=== PATIENT | male | born 2000 | race Caucasian/White ===

== ENCOUNTER 2023-06-03 19:37 | Emergency (ER) | payer OTHER ==
--- NOTE | 2023-06-03 19:47 | ED Physician Documentation ---
PD HPI UPPER EXT INJURY - Stated complaint Stated Complaint: LT HAND INJ - Chief complaint Chief Complaint: Trauma Ext - History obtained from History obtained from: Patient - Additonal information Additional information: Right-handed gentleman accidentally hit his left thumb with a hammer at home just prior to arrival. He has moderate pain in the distal left thumb and fingernail area, no other injuries. Declines pain medication on initial evaluation. PD PAST MEDICAL HISTORY - Past Medical History Past Medical History: No - Past Surgical History Past Surgical History: No - Present Medications Home Medications: Ambulatory Orders Medication Instructions Recorded Confirmed No Known Home Medications 06/03/23 06/03/23 - Allergies Allergies/Adverse Reactions: Allergies Allergy/AdvReac Type Severity Reaction Status Date / Time Penicillins Allergy Rash Verified 06/03/23 19:44 - Social History Does the pt smoke?: No Smoking Status: Never smoker - Immunizations Immunizations are current?: Yes - POLST Patient has POLST: No PD ED PE NORMAL - Vitals Vital signs reviewed: Yes - General General: Alert and oriented X 3, No acute distress - Extremities Extremities: Other (Tender to the tip of the left thumb with a less than 10% subungual hematoma and normal neurovascular status at the tip. No proximal thumb or metacarpal area tenderness.) - Neuro Neuro: Alert and oriented X 3, Normal speech Results - Vitals Vitals: Vital Signs - 24 hr 06/03/23 06/03/23 19:41 21:04 Temperature 36.7 C Heart Rate 71 72 Respiratory 16 16 Rate Blood Pressure 137/62 H 135/64 H O2 Saturation 100 99 Oxygen O2 Source Room air - Rads (name of study) 3v L thumb XR- negative Relevant Findings:: Final report received, EMP independent interpretation of test Departure - Departure Disposition: 01 Home, Self Care Clinical Impression: Crushing injury of thumb, left Qualifiers: Encounter type: initial encounter Qualified Code(s): S67.02XA - Crushing injury of left thumb, initial encounter Condition: Good Record reviewed to determine appropriate education?: Yes Instructions: ED Crush Injury Finger No Fx Comments: Tylenol and/or ibuprofen as needed for pain, you can also ice it 5 minutes on 20 minutes off. Should be better in a week or so. Return if worse. 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 Forms: Activity restrictions Discharge Date/Time: 06/03/23 21:05
[2023-06-03 21:07] VITALS: BP 135/64; O2SAT 99
--- NOTE | 2023-06-03 21:55 | XRAY Report ---
PROCEDURE: Finger(s) LT INDICATIONS: thumb inj TECHNIQUE: PA hand, 2 views of the thumb acquired. COMPARISON: None. FINDINGS: Bones: No acute fractures or dislocations. No suspicious bony lesions. Soft tissues: No suspicious soft tissue calcifications. IMPRESSION: No acute osseous abnormality. If there is clinical concern or persistent symptoms, additional imaging such as repeat radiographs or advanced imaging (e.g. CT, MRI) may be helpful for further evaluation. Reviewed by: Liang Ceja MD on 06/03/2023 9:54 PM PDT Approved by: Liang Ceja MD on 06/03/2023 9:54 PM PDT Station ID: [id number]
== END 2023-06-03 21:05 | disposition home or self-care (01) ==
LOC: ED 19:37
DX: S67.02XA Crushing injury of left thumb, initial encounter (principal); W23.0XXA Caught, crushed, jammed, or pinched between moving objects, initial encounter; Y92.009 Unspecified place in unspecified non-institutional (private) residence as the place of occurrence of the external cause
CPT/HCPCS: 99283

== ENCOUNTER 2023-06-07 17:57 | Emergency (ER) | payer OTHER ==
[2023-06-07 19:07] VITALS: O2SAT 98
--- NOTE | 2023-06-07 19:12 | ED Physician Documentation ---
PD HPI OPHTHO - Stated complaint Stated Complaint: RT EYE PX - Chief complaint Chief Complaint: Heent - History obtained from History obtained from: Patient - Additional information Additional information: 23yM without prior vision issues, no corrective lenses, p/w red swollen R eyelid on waking today. denies foreign body or previous issues with eye. PD PAST MEDICAL HISTORY - Past Medical History Past Medical History: No - Past Surgical History Past Surgical History: No - Present Medications Home Medications: Ambulatory Orders Medication Instructions Recorded Confirmed Carboxymethylcellulose Sodium 15 ml OP BID 14 Days #15 ml 06/07/23 [Artificial Tears] - Allergies Allergies/Adverse Reactions: Allergies Allergy/AdvReac Type Severity Reaction Status Date / Time Penicillins Allergy Rash Verified 06/07/23 19:01 - Social History Does the pt smoke?: No Smoking Status: Never smoker Does the pt have substance abuse?: No - Immunizations Immunizations are current?: Yes - POLST Patient has POLST: No PD ED PE NORMAL - Vitals Vital signs reviewed: Yes - General General: Alert and oriented X 3, No acute distress, Well developed/nourished - HEENT HEENT: Atraumatic, PERRL, EOMI, Other (R sided mild swelling, edema c/w blepharitis upper lid. no conjunctival injection or pain with EOM) Results - Vitals Vitals: Vital Signs - 24 hr 06/07/23 18:54 Temperature 36.7 C Heart Rate 77 Respiratory 16 Rate Blood Pressure 142/70 H O2 Saturation 98 Oxygen O2 Source Room air PD Medical Decision Making - ED course ED course: 23yM presents with mild blepharitis. no eye involvement. this is confined to lid only. symptoms care discussed. return precautions given. Departure - Departure Disposition: Home, Self Care Clinical Impression: Blepharitis Condition: Stable Instructions: Blepharitis, Blepharitis Tx Self Care Prescriptions: Carboxymethylcellulose Sodium [Artificial Tears] 15 ml OP BID 14 Days #15 ml Comments: You were seen in the ED for mild case of blepharitis. You can use warm wet compresses multiple times daily and gently massage the eye to help the healing process. Eye drops sent electronically to [facility]. return or go to walk in clinic if symptoms worsen or fail to improve. Forms: PCP List
[2023-06-07 20:03] VITALS: BP 140/70
== END 2023-06-07 19:57 | disposition home or self-care (01) ==
LOC: ED 17:57
DX: H01.003 Unspecified blepharitis right eye, unspecified eyelid (principal)
CPT/HCPCS: 99282; 99283

== ENCOUNTER 2023-06-09 14:03 | Emergency (ER) | payer OTHER ==
[2023-06-09 14:36] VITALS: BP 118/72; O2SAT 98
--- NOTE | 2023-06-09 15:07 | ED Physician Documentation ---
PD HPI OPHTHO - Stated complaint Stated Complaint: RT EYE SWELLING - Chief complaint Chief Complaint: Heent - History obtained from History obtained from: Patient - History of Present Illness Timing - onset: How many days ago (4-5) Timing - duration: Days Timing - details: Gradual onset, Still present (seen 3 days ago for this and instructed to use moisturizing drops and warm compresses. Has gotten worse and uper eyelid mostly red/swollen now.) Location: Left Associated symptoms: Redness, Swelling, Matting. No: FB sensation Contributing factors: No: Wears contacts Similar symptoms before: Has not had sx before Recently seen: Emergency Dept (3 days ago) Review of Systems Constitutional: denies: Fever Eyes: denies: Decreased vision, Irritation Nose: denies: Rhinorrhea / runny nose, Congestion Throat: denies: Sore throat PD PAST MEDICAL HISTORY - Past Medical History Cardiovascular: None Respiratory: None - Past Surgical History Past Surgical History: No - Present Medications Home Medications: Ambulatory Orders Medication Instructions Recorded Confirmed Carboxymethylcellulose Sodium 15 ml OP BID 14 Days #15 ml 06/07/23 06/09/23 [Artificial Tears] Doxycycline Hyclate 100 mg PO BID 7 Days #14 cap 06/09/23 Erythromycin Base [Erythromycin 1 applic OP QID #3.5 gm 06/09/23 Ophthalmic Ointment] - Allergies Allergies/Adverse Reactions: Allergies Allergy/AdvReac Type Severity Reaction Status Date / Time Penicillins Allergy Rash Verified 06/09/23 14:33 - Social History Does the pt smoke?: No Smoking Status: Never smoker Does the pt have substance abuse?: No - Immunizations Immunizations are current?: Yes - POLST Patient has POLST: No PD ED PE NORMAL - Vitals Vital signs reviewed: Yes - General General: Alert and oriented X 3, No acute distress, Well developed/nourished - HEENT HEENT: PERRL, EOMI, Other (left upper eyelid with redness and swellling. Local area of more swelling but no fluctuance lateral aspect. ) Results - Vitals Vitals: Oxygen O2 Source Room air PD Medical Decision Making - ED course Complexity details: considered differential (eyeid stye with more redness and swelling despite drops and compresses. Presume infection now and will use topical and oral abx for cellulitis. ), d/w patient Departure - Departure Disposition: 01 Home, Self Care Clinical Impression: Stye external Condition: Stable Prescriptions: Doxycycline Hyclate 100 mg PO BID 7 Days #14 cap Erythromycin Base [Erythromycin Ophthalmic Ointment] 1 applic OP QID #3.5 gm Comments: Continue with some lubricating eyedrops and warm compresses periodically through the day to try to unclog the gland. However it does appear to have some infection to it and so use the doxycycline oral antibiotic in the topical antibiotic ointment as directed. I sent your prescriptions to the [facility] pharmacy. Recheck if not improved well over the next several days and resolved by 3 days or so. Forms: PCP List Discharge Date/Time: 06/09/23 15:44
[2023-06-09] MEDS: DOXYCYCLINE 100 MG TABLET PO STA (15:38)
== END 2023-06-09 15:44 | disposition home or self-care (01) ==
LOC: ED 14:03
DX: H00.011 Hordeolum externum right upper eyelid (principal)
CPT/HCPCS: 99282; 99283; A9270

== ENCOUNTER 2023-09-19 08:00 | Outpatient (CLI) | payer OTHER | END 2023-09-19 23:59 | disposition home or self-care (01) | LOC: LAB.N 08:00 | PROVIDERS: ATTEND Physician Assistant Medical | DX: J02.9 Acute pharyngitis, unspecified (principal) | CPT/HCPCS: 87070 ==

== ENCOUNTER 2023-09-21 21:21 | Emergency (ER) | payer OTHER ==
[2023-09-21 21:34] VITALS: BP 129/67
--- NOTE | 2023-09-21 22:23 | ED Physician Documentation ---
PD HPI HEENT - Stated complaint Stated Complaint: MOUTH PX - Chief complaint Chief Complaint: Heent - History obtained from History obtained from: Patient, Family - History of Present Illness Timing - onset: How many weeks ago (2) Timing - duration: Weeks Timing - details: Gradual onset, Still present Location: Throat Improves: Medication Worsens: Swalllowing Associated symptoms: Congestion, Swollen nodes. No: Facial swelling, Cough Similar symptoms before: Diagnosis (tonsilitis) Recently seen: Clinic - Additional information Additional information: Siva Lennon has been sick with a sore throat for the past 2 weeks. He has persistence of odynophagia and feels there is swelling in his tonsils and feels like he has some tonsil stones. He did go into the urgent care had a strep rapid strep done which was negative. Review of Systems Constitutional: reports: Fever, Chills Eyes: denies: Decreased vision Ears: denies: Ear pain Nose: reports: Congestion. denies: Rhinorrhea / runny nose Throat: reports: Sore throat Cardiac: denies: Chest pain / pressure, Palpitations Respiratory: denies: Dyspnea, Cough GI: denies: Abdominal Pain, Nausea, Vomiting, Constipation, Diarrhea : denies: Dysuria, Frequency PD PAST MEDICAL HISTORY - Past Medical History Past Medical History: No Cardiovascular: None Respiratory: None - Past Surgical History Past Surgical History: No - Present Medications Home Medications: Ambulatory Orders Medication Instructions Recorded Confirmed Azithromycin [Zithromax] 250 mg PO DAILY #6 tablet 09/21/23 - Allergies Allergies/Adverse Reactions: Allergies Allergy/AdvReac Type Severity Reaction Status Date / Time Penicillins Allergy Rash Verified 09/21/23 21:31 - Social History Does the pt smoke?: No Smoking Status: Never smoker Does the pt have substance abuse?: No - Immunizations Immunizations are current?: Yes - POLST Patient has POLST: No PD ED PE NORMAL - Vitals Vital signs reviewed: Yes (normal ) - General General: Alert and oriented X 3, No acute distress, Well developed/nourished - HEENT HEENT: Atraumatic, PERRL, EOMI, Ears normal, Other (The tonsils are 1+ cryptic and with minimal exudate.) - Neck Neck: Supple, no meningeal sign, No bony TTP - Cardiac Cardiac: RRR, No murmur - Respiratory Respiratory: No respiratory distress, Clear bilaterally - Abdomen Abdomen: Soft, Non tender - Derm Derm: Normal color, Warm and dry, No rash - Extremities Extremities: No deformity, No edema - Neuro Neuro: Alert and oriented X 3, principal biostatistician 2-12 intact, No motor deficit, No sensory deficit, Normal speech Eye Opening: Spontaneous Motor: Obeys Commands Verbal: Oriented GCS Score: 15 - Psych Psych: Normal mood, Normal affect Results - Vitals Vitals: Vital Signs - 24 hr 09/21/23 09/21/23 21:24 22:26 Temperature 36.4 C L Heart Rate 91 88 Respiratory 15 16 Rate Blood Pressure 129/67 O2 Saturation 97 98 Oxygen O2 Source Room air PD Medical Decision Making - ED course Complexity details: considered differential, d/w patient, d/w family ED course: Siva Lennon is a 23-year-old male with tonsillitis is administered dexamethasone 10 mg orally we will place him on some azithromycin. Departure - Departure Disposition: 01 Home, Self Care Clinical Impression: Tonsillitis Condition: Stable Instructions: ED Tonsillitis Follow-Up: ROSALIE Thurman [Provider Group] Prescriptions: Azithromycin [Zithromax] 250 mg PO DAILY #6 tablet Comments: Siva, today it looks like you have tonsillitis and the expectation with the treatment you were given this evening is to have resolution of your symptoms even overnight. This entity usually has some inflammation associated with it and the dexamethasone we gave you tonight will help with this. There is frequently superficial infection involved as well and I have E scribed an antibiotic for you to take to the [facility] in [place]. This may not be necessary for this treatment. Forms: PCP List Discharge Date/Time: 09/21/23 22:26
[2023-09-21] MEDS: CHERRY SYRUP 10 ML UDC PO ONE (22:25)
[2023-09-21] MEDS: DEXAMETHASONE 10 MG/ML VIAL PO STA (22:25)
[2023-09-21 22:34] VITALS: O2SAT 98
== END 2023-09-21 22:26 | disposition home or self-care (01) ==
LOC: ED 21:21
DX: J03.90 Acute tonsillitis, unspecified (principal)
CPT/HCPCS: 99283; A9270